=== PATIENT | female | born 1985 | race Caucasian/White ===

== ENCOUNTER 2023-06-07 06:25 | Emergency (ER) | payer OTHER, SELFPAY ==
--- NOTE | 2023-06-07 06:31 | ED.GENADULT ---
HPI - General Adult General Chief complaint: Laceration/Wound Stated complaint: Injured right finger Time Seen by Provider: 06/07/23 06:26 History of Present Illness HPI narrative: CC: Right Finger Puncture Wound pt. was breaking up her dogs when she got bit on right pinky finger. cms intact. dogs up to date on vaccines. 37-year-old woman presenting to the emergency department after being bit by 1 of her dogs as she was breaking up a fight. Was bit on the right 5th finger. She was initially worried that she had lost the entire tip. Dogs are up-to-date on vaccinations. Ms. Washington herself is up-to-date on tetanus at least within the last 9 years. Is realizing that it hurts more than she thought as the adrenaline wears off. Has wrapped it up to control the bleeding. Related Data Home Medications Medication Instructions Recorded Confirmed levonorgestrel 0.15 mg-ethinyl 1 tab PO DAILY 06/07/23 06/07/23 estradiol 0.03 mg tablet (Lueders 28) Allergies Allergy/AdvReac Type Severity Reaction Status Date / Time Sulfa (Sulfonamide Allergy Mild Hives Verified 06/07/23 06:32 Antibiotics) tetanus and diphtheria Allergy Mild Swelling, Verified 06/07/23 06:32 toxoids Fevers Review of Systems Status of ROS: Reports: 6 or more systems reviewed and unremarkable except as noted in History and below [facility] Medical History No significant past medical history Surgical History No significant past surgical history Social History Smoking Status: Never smoker Second hand tobacco smoke exposure: No How often do you have a drink containing alcohol: never How often do you have six or more drinks on one occasion: Never AUDIT-C Alcohol total score: 0 Non-prescribed substance use: denies use Exam Narrative: Exam Narrative: Very pleasant. Positive. Appears a little uncomfortable. Favoring her right hand which has gauze and tape wrapped around her right 5th finger. Removing the gauze reveals partially amputated finger tip. The nail is mostly dislodged from the proximal marce-lunar fold. The ulnar side of the finger is lacerated from the nail fold wrapping around to the palmar surface pad of the finger. In total just shy of 2 cm. Irregular laceration. Tip is angulated to the ulnar side. Suspect fracture here. Const: Vital Signs, click to edit/add: Vital Signs - 24 hr 06/07/23 06:35 Temperature 98.0 F Pulse Rate [Right Pulse Oximeter] 89 Respiratory Rate 18 Blood Pressure [Le ft Upper Arm] 145/78 H Pulse Oximetry 99 Oxygen Delivery Me thod Room Air Documenting provider has reviewed patient's vital signs: yes Course Vital Signs Vital signs: Initial Vital Signs Temperature 98.0 F 06/07/23 06:35 Temperature Source Temporal Artery Scan 06/07/23 06:35 Pulse Rate 89 06/07/23 06:35 Respiratory Rate 18 06/07/23 06:35 Blood Pressure 145/78 H 06/07/23 06:35 Blood Pressure Mean 100 06/07/23 06:35 Blood Pressure Position Sitting 06/07/23 06:35 Pulse Oximetry 99 06/07/23 06:35 Oxygen Delivery Method Room Air 06/07/23 06:35 Vital Signs Temperature 98.0 F 06/07/23 06:35 Pulse Rate 89 06/07/23 06:35 Respiratory Rate 18 06/07/23 06:35 Blood Pressure 145/78 H 06/07/23 06:35 Pulse Oximetry 99 06/07/23 06:35 Oxygen Delivery Method Room Air 06/07/23 06:35 Temperature 98.0 F 06/07/23 06:35 Pulse Rate 89 06/07/23 06:35 Respiratory Rate 18 06/07/23 06:35 Blood Pressure 145/78 H 06/07/23 06:35 Pulse Oximetry 99 06/07/23 06:35 Oxygen Delivery Method Room Air 06/07/23 06:35 Medications Administered Medications: Discontinued Medications Generic Name Dose Route Start Last Admin Trade Name Freq PRN Reason Stop Dose Admin Bupivacaine HCl 3 ml 06/07/23 06:34 06/07/23 06:38 Bupivacaine 0.25% 30 Ml INJECTION 06/07/23 06:35 3 ml ONCE ONE Administration Medical Decision Making MDM Narrative Medical decision making narrative: Need to note there is a fracture given the open nature of this wound. Digital block with bupivacaine. Required some additional infiltration for full anesthesia. Soaking in Hibiclens water. Scrubbed. X-rays of the right 5th finger reviewed by me does show a distal finger tip fracture angulated to the radial side. Once achieved good anesthesia able to proceed with repair. Did require stabilization with 1 suture through the nail. Combination of 5 and 6-0 Ethilon sutures. Antibiotic ointment and Telfa and gauze wrap. Was given finger Stax splints for support and to place after initial dressing is removed. See patient discharge plan Discharge Plan Discharge Clinical Impression: Finger fracture, Dog bite, Finger laceration Patient Disposition: Home, Self-Care Condition: Improved Additional Instructions: Can change this current dressing sometime later tomorrow. sutures out in 10 days. antibiotic ointment for 6 days and then to a dry dressing. Hopefully can thin up the dressing pretty quickly and make use of the splint over the next 2 - 3 weeks. Otherwise can use as needed for protection/comfort. ok to get wet but try not to soak while sutures are in. Watch for spreading redness after 2 days accompanied by heat, swelling, marked increase in pain, purulent drainage. Would recommend antibiotic prophylaxis. <del>Amoxicillin</del> Augmentin from [facility] for 5 days. Can take up to 800 mg of ibuprofen up to 1000 mg of acetaminophen per dose. Prescriptions: No Action levonorgestrel-ethinyl estrad [Dorcas 28] 0.15-0.03 mg tablet 1 tab PO DAILY Follow Up/Referrals: Dalia Valdovinos MD [Primary Care Provider] - Stand Alone Forms: [facility] Info Instructions
--- NOTE | 2023-06-07 06:34 | CRLHL7_ITS ---
For Patients: As a result of the Century Cures Act, medical imaging exams and procedure reports are released immediately into your electronic medical record. You may view this report before your referring provider. If you have questions, please contact your health care provider. Indication: Dog bite Technique: A total of three views of the right 5th digit were acquired. Comparison: None Findings: Bones: Fracture of the tuft of the distal phalanx of the right 5th digit. Minimally displaced in the radial and palmar direction . Joint spaces: Non intra-articular. No dislocation Soft tissues: Soft tissue injury. No radiopaque foreign body. Impression: Fracture. Soft tissue injury. No dislocation. No foreign body. Dictated by Tam Jewell MD @ 06/07/2023 6:58:17 AM (Electronically Signed)
[2023-06-07 06:35] VITALS: BP 145/78; PULSE 89; RESP 18; TEMP 36.7; O2SAT 99; BMI 33.7
[2023-06-07] MEDS: BUPIVACAINE 0.25% 30 ML INJECTION (06:38)
--- NOTE | 2023-06-07 06:52 | ED.NURSE ---
[facility] contacted about dog bite. they will contact patient either by phone or in person. patient updated.
== END 2023-06-07 08:28 | disposition home or self-care (01) ==
PROVIDERS: Emergency Provider Family Medicine; PCP Obstetrics & Gynecology
DX: S61.356A Open bite of right little finger with damage to nail, initial encounter (principal); S62.666A Nondisplaced fracture of distal phalanx of right little finger, initial encounter for closed fracture; W54.0XXA Bitten by dog, initial encounter
CPT/HCPCS: 12001; 73140; 99283; 99284; J0665